=== PATIENT | female | born 1965 | race Caucasian/White ===

== ENCOUNTER 2021-07-07 20:36 | Outpatient (REF) | payer MEDICARE, MEDICAID, SELFPAY ==
[2021-07-07 22:20] LABS: Bilirubin Negative (Negative); Blood Negative (Negative); Clarity Clear (Clear); Glucose Negative (Negative); Ketones Negative (Negative); Leukocyte Esterase Moderate (Negative); Nitrite Negative (Negative); Specific Gravity 1.025 (1.005-1.025); Urobilinogen 0.2 EU/dL (Up TO 0.2)
[2021-07-07 22:26] LABS: Bacteria Moderate HPF (Negative); C & S Indicated? Yes; Casts Negative LPF (Negative); Crystals Negative HPF (Negative); Epithelial Cells Few HPF (Negative); Mucus Trace (Negative)
== END 2021-07-07 20:37 | disposition home or self-care (01) ==
LOC: LBN 20:36
PROVIDERS: Visit Provider Family Medicine
DX: N18.30 Chronic kidney disease, stage 3 unspecified (principal); R32 Unspecified urinary incontinence
CPT/HCPCS: 87077; 81003; 81015; 87086; 87186